=== PATIENT | female | born 1940 ===

== ENCOUNTER → 2023-05-17 | Outpatient (CLI) | payer MEDICARE, MEDICAID ==
[~2023-05-17] MED LIST: ACET-2247 PO; AMIO200T68 PO; ATOR20TA PO; BISA10SU11 PR; CARV6 PO; CHOL25TA4 PO; CYAN-119 PO; DOCU-412 PO; ESCI-8 PO; FERR325T27 PO; FLUT1BLS15 IH; FURO20 PO; GABA-1201 PO; GUAIF600 PO; LEVO25TA9 PO; MELA5TAB40 PO; MIRA25TA PO; OLOP5DRO27 OU; OXYC10TA59 PO; POLY17PO47 PO; POTA-92 PO
[2023-05-17 11:40] VITALS: BP 139/57; PULSE 55; RESP 20; TEMP 98.3; O2SAT 98
== END | disposition home or self-care (01) ==
LOC: SRCNTR 11:20
PROVIDERS: ATTEND Internal Medicine Pulmonary Disease
DX: J44.1 Chronic obstructive pulmonary disease with (acute) exacerbation (principal); J90 Pleural effusion, not elsewhere classified; N17.9 Acute kidney failure, unspecified; I11.0 Hypertensive heart disease with heart failure; I50.31 Acute diastolic (congestive) heart failure; E03.9 Hypothyroidism, unspecified; E78.5 Hyperlipidemia, unspecified; I48.0 Paroxysmal atrial fibrillation; I65.23 Occlusion and stenosis of bilateral carotid arteries; Z90.710 Acquired absence of both cervix and uterus
CPT/HCPCS: G0463